=== PATIENT | female | born 1945 | race Caucasian/White ===

== ENCOUNTER 2018-11-14 06:53 | Day surgery (SDC) | payer MEDICARE, OTHER ==
[2018-11-14] VITALS (7 sets, daily range): BP systolic 139–156; BP diastolic 64–79
[~2018-11-14] VITALS: Ht 154.9 cm; Wt 71.7 kg
[~2018-11-14 06:53] MED LIST: DIABETIC MED; PROPRANOLOL HCL60 M1 PO
[2018-11-14] MEDS ORDERED: LR 1000ml 1,000 ML IVLG SCH ×2 (07:00→07:24)
[2018-11-14] MEDS ORDERED: PROPRANOLOL HCL60 M1 PO (07:18)
[2018-11-14] MEDS ORDERED: GLIMEPIRIDE1 MG ORAL (07:18)
--- NOTE | 2018-11-14 07:28 | Anethesia Preoperative Eval ---
Anesthesia Pre-op PMH/ROS General Date of Evaluation: Nov 14, 2018 Time of Evaluation: 07:26 Anesthesiologist: hany ASA Score: ASA 3 Mallampati Score Class I : Soft palate, uvula, fauces, pillars visible Class II: Soft palate, uvula, fauces visible Class III: Soft palate, base of uvula visible Class IV: Only hard plate visible Mallampati Classification: Class II Surgeon: merlene Diagnosis: gerd, colon polyps Surgical Procedure: egd/colonoscopy Anesthesia History: none Social History: smoking - nonsmoker Family History: no anesthesia problems Allergies: Coded Allergies: ASPIRIN (Verified Allergy, Severe, 11/14/18) ITCHING Medications: see eMAR Patient NPO?: Yes Past Medical History Cardiovascular: Reports: arrhythmia, other - hypercholesterolemia Gastrointestinal/Genitourinary: Reports: GERD Endocrine: Reports: DM HEENT: Reports: cataract (L), cataract (R) PSxH Narrative: hysterectomy Anesthesia Pre-op Phys. Exam Physician Exam Last Vital Signs Date Time Temp Pulse Resp B/P (MAP) Pulse Ox O2 Delivery O2 Flow Rate FiO2 11/14/18 07:29 98.1 63 18 146/76 99 Room Air Constitutional: NAD Neurologic: CN 2-12 intact Cardiovascular: RRR Respiratory: CTA Gastrointestinal: S/NT/ND Airway Exam Mallampati Score: Class II MO: limited Neck: flexible TMD: 2fb ROM: limited Dentures: upper - implants Anesthesia Pre-op A/P Risk Assessment & Plan Assessment: asa3. patient admits to skipping dose of propranolol this morning Plan: mac Pre-Antibiotics Drug: Meredith Brown MD Nov 14, 2018 07:28
[2018-11-14] MEDS ORDERED: Atropine Inj 1mg/10ml Syr IV PRN (07:30)
[2018-11-14] MEDS ORDERED: Midazolam 2mg/2ml Inj IVP PRN (07:30)
[2018-11-14] MEDS ORDERED: fentaNYL 100 mcg/2 mL IV PRN (07:30)
[2018-11-14] MEDS ORDERED: DiphenhydrAMINE 50mg/ml Inj IVP PRN (07:30)
[2018-11-14] MEDS ORDERED: Lidocaine 1% MPF 10mg/ml 5ml ONE (08:00)
[2018-11-14] MEDS ORDERED: LR 1000ml ONE (08:00)
[2018-11-14] MEDS ORDERED: Propofol 200mg/20ml IV ONE (08:00)
[2018-11-14 08:31] LABS: EOSINOPHILS % (AUTO) 3.2 % (0.0-3.0); HEMATOCRIT 42.3 % (37.0-47.0); HEMOGLOBIN 13.9 G/DL (12.0-16.0); LYMPHOCYTES % (AUTO) 23.8 % (20.0-45.0); MEAN CORPUSCULAR VOLUME 86 FL (80-99); MONOCYTES % (AUTO) 8.1 % (1.0-10.0); PLATELET COUNT 254 K/UL (150-450); RED BLOOD COUNT 4.91 M/UL (4.20-5.40); RED CELL DISTRIBUTION WIDTH 13.1 % (11.6-14.8); WHITE BLOOD COUNT 7.7 K/UL (4.8-10.8)
[2018-11-14 08:39] LABS: ANION GAP 6 mmol/L (5-15); BLOOD UREA NITROGEN 10 mg/dL (7-18); CALCIUM 9.2 MG/DL (8.5-10.1); CARBON DIOXIDE 32 MMOL/L (21-32); CHLORIDE 104 MMOL/L (98-107); CREATININE 0.7 MG/DL (0.55-1.30); POTASSIUM 4.1 MMOL/L (3.5-5.1); SODIUM 142 MMOL/L (136-145)
--- NOTE | 2018-11-14 08:39 | Short Stay Surgery H&P ---
History of Present Illness History of Present Illness Chief Complaint See typed H&P HPI Seth Owen is a 73 year old female who was admitted on for Gerd, Hx Of Colon Polyps Patient History Allergies: Coded Allergies: ASPIRIN (Verified Allergy, Severe, 11/14/18) ITCHING Medication History Scheduled Glimepiride* (Glimepiride*), 1 MG ORAL BID, (Reported) Propranolol Hcl (Propranolol Hcl), 20 MG PO BID, (Reported) Physical Exam Vital Signs Last Vital Signs Date Time Temp Pulse Resp B/P (MAP) Pulse Ox O2 Delivery O2 Flow Rate FiO2 11/14/18 07:29 98.1 63 18 146/76 99 Room Air Labs Laboratory Tests Test 11/14/18 08:20 White Blood Count 7.7 K/UL (4.8-10.8) Red Blood Count 4.91 M/UL (4.20-5.40) Hemoglobin 13.9 G/DL (12.0-16.0) Hematocrit 42.3 % (37.0-47.0) Mean Corpuscular Volume 86 FL (80-99) Mean Corpuscular Hemoglobin 28.2 PG (27.0-31.0) Mean Corpuscular Hemoglobin Concent 32.8 G/DL (32.0-36.0) Red Cell Distribution Width 13.1 % (11.6-14.8) Platelet Count 254 K/UL (150-450) Mean Platelet Volume 7.3 FL (6.5-10.1) Neutrophils (%) (Auto) 64.0 % (45.0-75.0) Lymphocytes (%) (Auto) 23.8 % (20.0-45.0) Monocytes (%) (Auto) 8.1 % (1.0-10.0) Eosinophils (%) (Auto) 3.2 % (0.0-3.0) H Basophils (%) (Auto) 1.0 % (0.0-2.0) Sodium Level Pending Potassium Level Pending Chloride Level Pending Carbon Dioxide Level Pending Blood Urea Nitrogen Pending Creatinine Pending Estimat Glomerular Filtration Rate Pending Glucose Level Pending Calcium Level Pending Plan Attestation Are the patient's medical conditions optimized for surgery? Ezequiel Bashir MD Nov 14, 2018 08:39
--- NOTE | 2018-11-14 08:40 | Pre-Procedure Note/Attestation ---
Pre-Procedure Note/Attestation Complete Prior to Procedure Planned Procedure: not applicable Procedure Narrative: Colonoscopy Indications for Procedure Pre-Operative Diagnosis: screening Attestation I attest that I discussed the nature of the procedure; its benefits; risks and complications; and alternatives (and the risks and benefits of such alternatives ), prior to the procedure, with the patient (or the patient's legal account development representative). I attest that, if there was a reasonable possibility of needing a blood transfusion, the patient (or the patient's legal account development representative) was given the [facility] standardized written summary, pursuant to the [employer] Blood Safety Act ([place] Health and Safety Code # 1645, as amended). I attest that I re-evaluated the patient just prior to the surgery and that there has been no change in the patient's H&P, except as documented below: Ezequiel Bashir MD Nov 14, 2018 08:40
--- NOTE | 2018-11-14 08:50 | Pre-Procedure Note/Attestation ---
Pre-Procedure Note/Attestation Complete Prior to Procedure Planned Procedure: not applicable Procedure Narrative: Esophagogastrodeuodenoscopy Indications for Procedure Pre-Operative Diagnosis: GERD, epigastric pain Attestation I attest that I discussed the nature of the procedure; its benefits; risks and complications; and alternatives (and the risks and benefits of such alternatives ), prior to the procedure, with the patient (or the patient's legal underwriting sales representative). I attest that, if there was a reasonable possibility of needing a blood transfusion, the patient (or the patient's legal underwriting sales representative) was given the [facility] standardized written summary, pursuant to the Pr[employer]od [place] Blood Safety Act ([place] Health and Safety Code # 1645, as amended). I attest that I re-evaluated the patient just prior to the surgery and that there has been no change in the patient's H&P, except as documented below: Ezequiel Bashir MD Nov 14, 2018 08:50
--- NOTE | 2018-11-14 09:55 | Immediate Post-Op Evaluation ---
Immediate Post-Op Evalulation Immediate Post-Op Evalulation Procedure: egd/colonoscopy/bx Date of Evaluation: Nov 14, 2018 Time of Evaluation: 09:45 IV Fluids: 500ml lr Blood Products: none Estimated Blood Loss: negkligible Blood Pressure Systolic: 145 Blood Pressure Diastolic: 74 Pulse Rate: 68 Respiratory Rate: 18 O2 Sat by Pulse Oximetry: 99 Temperature (Fahrenheit): 98.0 Pain Score (1-10): 0 Nausea: No Vomiting: No Complications none Patient Status: awake, reacts, patent Hydration Status: adequate Drug: Meredith Brown MD Nov 14, 2018 09:55
--- NOTE | 2018-11-14 09:56 | 48 Hour Post Anesthesia Eval ---
Post Anesthesia Evaluation Procedure: egd/colonoscopy/bx Date of Evaluation: Nov 14, 2018 Time of Evaluation: 09:47 Blood Pressure Systolic: 141 0: 67 Pulse Rate: 70 Respiratory Rate: 18 Temperature (Fahrenheit): 98.0 O2 Sat by Pulse Oximetry: 99 Airway: patent Nausea: No Vomiting: No Pain Intensity: 0 Hydration Status: adequate Cardiopulmonary Status: stable Mental Status/LOC: patient returned to baseline Post-Anesthesia Complications: none Follow-up care needed: N/A Meredith Montiel MD Nov 14, 2018 09:56
--- NOTE | 2018-11-14 22:00 | Procedure Note ---
DATE OF PROCEDURE: 11/14/2018 PROCEDURE: Upper gastrointestinal endoscopy with biopsy as well as colonoscopy with biopsy. SURGEON: Ezequiel Bashir M.D. ANESTHESIA: Please see the separate anesthesiologist notes for details. PRE-ENDOSCOPIC DIAGNOSES: 1. Epigastric pain and acid discomfort. 2. Screening colonoscopy. POST-ENDOSCOPIC DIAGNOSES: 1. A 1 cm hiatal hernia. 2. Minimal antrum gastritis status post biopsy. 3. Status post random biopsies of the duodenum. 4. Sigmoid diverticulosis. 5. Two diminutive polyps in the rectum status post biopsy removal. 6. Mild internal hemorrhoids. DESCRIPTION OF PROCEDURE: The procedure, its risks, indications, alternatives, and possible complications were explained and an informed consent was obtained. The patient was then sedated. The diagnostic upper endoscope was introduced through the oropharynx and advanced to the duodenum. The endoscope was then removed. The rectal exam was done and the colonoscope was introduced into the rectum and advanced to the cecum. The colonoscope was then gradually withdrawn. Findings of endoscopy and colonoscopy are as listed above. The patient was sent to recovery in good condition. COMPLICATIONS: None. RECOMMENDATIONS: 1. Followup biopsy results. 2. High-fiber diet. 3. Check and treat Helicobacter pylori. 4. Outpatient followup. Thank you for asking me to participate in care this patient. Ezequiel Bashir M.D. DR: Hugo JOB#: [id number] CC: Marc Juan M.D.; Fax#: [phone] BLAKE MCCURDY M.D. ; FAX#: [phone]
--- NOTE | 2018-11-18 12:28 | Endoscopy Procedure Note ---
Endoscopy Procedure Note General Indication for Procedure: epig pain, screen Procedures Performed: EGD, colonoscopy Operative Findings/Diagnosis: see dictation Specimen: yes Pt Tolerated Procedure Well: Yes Estimated Blood Loss: none Anesthesia Anesthesiologist: Present , see report Anesthesia: MAC Medications Medication Given: see anesthesia record Inserted Devices Implant(s) used?: No GI Core Measures 50 yrs or older w/o bx or poly: No 10yrs. F/U not recommended: No If not recommended, why?: Above average risk 10 yrs. F/U needed: No 18 years or older w/prev. colo: No <3yrs. since last colonoscopy: No Med reason:<3 yrs.: System Reason:<3 yrs.: Last colonoscopy >= to 3yrs: Yes Ezequiel Bashir MD Nov 18, 2018 12:27
--- NOTE | 2018-11-18 12:29 | Brief Operative Note ---
Immediate Post Operative Note Operative Note Chief Complaint: abd pain, screen Pre-op Diagnosis: GERD, epigastric pain Procedure: EGD, Colon Post-op Diagnosis: 1. A 1 cm hiatal hernia. 2. Minimal antrum gastritis status post biopsy. 3. Status post random biopsies of the duodenum. 4. Sigmoid diverticulosis. 5. Two diminutive polyps in the rectum status post biopsy removal. 6. Mild internal hemorrhoids. Surgeon: merlene Anesthesiologist: see report Anesthesia: MAC Specimen: yes Complications: none Condition: stable Fluids: Given, recorded Estimated Blood Loss: none Drains: none Implant(s) used?: No Ezequiel Bashir MD Nov 18, 2018 12:29
== END 2018-11-14 10:35 | disposition home or self-care (01) ==
LOC: GAS 06:53
DX: K29.70 Gastritis, unspecified, without bleeding (principal); B96.81 Helicobacter pylori [H. pylori] as the cause of diseases classified elsewhere; K44.9 Diaphragmatic hernia without obstruction or gangrene; K57.30 Diverticulosis of large intestine without perforation or abscess without bleeding; K62.1 Rectal polyp; K64.8 Other hemorrhoids; Z86.010 Personal history of colon polyps; E11.9 Type 2 diabetes mellitus without complications; Z79.84 Long term (current) use of oral hypoglycemic drugs; E78.00 Pure hypercholesterolemia, unspecified; I49.9 Cardiac arrhythmia, unspecified; Z88.6 Allergy status to analgesic agent; Z90.710 Acquired absence of both cervix and uterus
CPT/HCPCS: 36415; 43239; 45380; 80048; 82962; 85025; 93005; J0360; J2704; 94003; 94150